=== PATIENT | male | born 1970 | race Caucasian/White ===

== ENCOUNTER → 2017-10-16 | Outpatient (REF) | payer MEDICARE, MEDICAID ==
[2015-08-29 11:33] VITALS: BMI 25.8
[~2017-10-16] MED LIST: ACE3 PO; BACL-1 PO; BISA-71 PO; BISA10SU66 RC; CALC-630 PO; CHOL100052 PO; CRAN500C12 PO; HYDR25SU34 RC; IBUP200C71 PO; IBUP400T13 PO; LEVO-85 PO; MAGN400T36 PO; METO-253 PO; NA P133E21 RC; POLY17PO25 PO; SENN8.6T34 PO; TUCKS TP
== END ==
LOC: ZZLCC 18:22
PROVIDERS: ATTEND Nurse Practitioner Family
DX: R94.5 Abnormal results of liver function studies (principal); E55.9 Vitamin D deficiency, unspecified
CPT/HCPCS: 82040; 82247; 82306; 82310; 82374; 82435; 82565; 82947; 84075; 84132; 84155; 84295; 84450; 84460; 84520

== ENCOUNTER → 2017-10-26 | Outpatient (CLI) | payer MEDICARE, MEDICAID ==
[2015-08-29 11:33] VITALS: BMI 25.8
--- NOTE | 2017-10-26 10:58 | RADIOLOGY IMAGING REPORT ---
FACILITY: [facility] - [place] PATIENT NAME: Duc Armstrong : 1970 MR: [id number] V: [id number] EXAM DATE: ORDERING PHYSICIAN: SANNA CHAUHAN TECHNOLOGIST: Location: [facility] - [place] Patient: Duc Armstrong : 1970 Visit/Account:[id number] Date of Sevice: 10/26/2017 Limited abdominal ultrasound of the right upper quadrant Indication: Elevated LFTs , Comparison: None available Findings Liver is normal in size and contour but has a diffusely heterogeneous echotexture. The liver measure s 16.4 cm in length. There is normal hepatopedal portal venous flow. Gallbladder wall thickness is 3.0 mm with no evidence of shadowing stone or sludge within the gallbla dder lumen. Negative sonographic Gilmore's sign reported by the technologist. Common duct measures 2.9 mm in maximum diameter with no evidence of shadowing stone. The head and proximal body of the pancreas is diffusely echogenic. The distal body and tail is obscur ed by overlying bowel gas. Abdominal aorta and IVC are patent and unremarkable. The right kidney is normal in size, contour, and echotexture and measures 9.5 cm in length. IMPRESSION: 1. Unremarkable appearance of the gallbladder and no acute abnormality on this ultrasound of the righ t upper quadrant region. 2. Diffusely heterogeneous appearing liver suggestive underlying hepatic steatosis. In addition, th e pancreas is echogenic suggestive of pancreatic lipomatosis Report Dictated By: Santo Baker at 10/26/2017 10:46 AM Report E-Signed By: Santo Baker at 10/26/2017 10:54 AM WSN:[id number]
== END ==
LOC: US 02:37
PROVIDERS: ATTEND Nurse Practitioner Family
DX: K76.0 Fatty (change of) liver, not elsewhere classified (principal)
CPT/HCPCS: 76705

== ENCOUNTER → 2017-12-20 | Outpatient (REF) | payer MEDICARE, MEDICAID ==
[2015-08-29 11:33] VITALS: BMI 25.8
[~2017-12-20] MED LIST changes: +IBUP-136 PO; -IBUP200C71 PO
[2017-12-20 15:35] LABS: PLATELET COUNT, AUTOMATED 225 K/uL (150-450)
== END ==
LOC: ZZLCC 15:13
PROVIDERS: ATTEND Nurse Practitioner Family
DX: A41.9 Sepsis, unspecified organism (principal); F32.9 Major depressive disorder, single episode, unspecified; K59.00 Constipation, unspecified; K64.9 Unspecified hemorrhoids; M62.81 Muscle weakness (generalized); N30.00 Acute cystitis without hematuria; N39.0 Urinary tract infection, site not specified; R00.0 Tachycardia, unspecified; R25.9 Unspecified abnormal involuntary movements; G35 Multiple sclerosis; I10 Essential (primary) hypertension
CPT/HCPCS: 80074; 82040; 82247; 82310; 82374; 82435; 82565; 82728; 82947; 83540; 83550; 84075; 84132; 84155; 84295; 84450; 84460; 84520; 85025

== ENCOUNTER → 2018-06-28 | Outpatient (REF) | payer MEDICARE, MEDICAID ==
[2015-08-29 11:33] VITALS: BMI 25.8
[~2018-06-28] MED LIST changes: -SENN8.6T34 PO; +SENN8.6T35 PO
== END ==
LOC: ZZLCC 18:48
PROVIDERS: ATTEND Nurse Practitioner Family
DX: I50.9 Heart failure, unspecified (principal)
CPT/HCPCS: 82040; 82247; 82310; 82374; 82435; 82565; 82947; 84075; 84132; 84155; 84295; 84450; 84460; 84520

== ENCOUNTER → 2018-10-25 | Outpatient (REF) | payer MEDICARE, MEDICAID ==
[2015-08-29 11:33] VITALS: BMI 25.8
[2018-10-25 20:00] LABS: PLATELET COUNT, AUTOMATED 239 K/uL (150-450)
== END ==
LOC: ZZLCC 19:38
PROVIDERS: ATTEND Nurse Practitioner Family
DX: R41.0 Disorientation, unspecified (principal)
CPT/HCPCS: 82040; 82247; 82310; 82374; 82435; 82565; 82947; 84075; 84132; 84155; 84295; 84450; 84460; 84520; 85025

== ENCOUNTER → 2018-10-26 | Outpatient (REF) | payer MEDICARE ==
[2015-08-29 11:33] VITALS: BMI 25.8
== END ==
LOC: ZZLCC 07:18
PROVIDERS: ATTEND Nurse Practitioner Family
DX: R41.0 Disorientation, unspecified (principal)
CPT/HCPCS: 81001

== ENCOUNTER → 2018-12-27 | Outpatient (REF) | payer MEDICARE ==
[2015-08-29 11:33] VITALS: BMI 25.8
[2018-12-27 16:32] LABS: PLATELET COUNT, AUTOMATED 250 K/uL (150-450)
== END ==
LOC: ZZLCC 15:44
PROVIDERS: ATTEND Nurse Practitioner Family
DX: D72.829 Elevated white blood cell count, unspecified (principal)
CPT/HCPCS: 85025